=== PATIENT | male | born 1985 | race African-American/Black ===

== ENCOUNTER 2016-04-01 17:12 | Emergency (ER) | payer OTHER ==
[~2016-04-01] VITALS: Ht 180.3 cm; Wt 90.7 kg
[~2016-04-01 17:12] MED LIST: IBUPROFEN600 MG ORAL; NKM; POLYSPORIN O1 APPLI1 TOPIC; ROBAXIN-750750 MG PO; TRAMADOL HCL50 MG ORAL
[2016-04-01 18:37] VITALS: BP 122/70
--- NOTE | 2016-04-04 06:47 | Emergency Room Report ---
History of Present Illness General Chief Complaint: Dyspnea/Respdistress Source: Patient, EMS Present Illness HPI 31 YO M BIBEMS for "sob." Per EMS, + history of asthma. + smoker. VSS in field. Not hypoxic, no wheezing. No nebs given. Patient endorsing smoking "a lot" of marijuana. Patient not providing additional HPI - is laughing hysterically in triage. No acute distress. Denies ETOH, other drugs. Patient repeatedly asking staff for "snacks." Allergies: Coded Allergies: No Known Allergies (Unverified , 01/18/14) Patient History Past Medical History: asthma Past Surgical History: none Pertinent Family History: none Social History: Reports: drug use, smoking Immunizations: UTD Reviewed Nursing Documentation: PMH: Agreed, PSxH: Agreed Nursing Documentation-PMH Hx Asthma: Yes Hx COPD: Yes - Bronchitis Review of Systems All Other Systems: negative except mentioned in HPI Physical Exam Vital Signs Date Time Temp Pulse Resp B/P Pulse Ox O2 Delivery O2 Flow Rate FiO2 04/01/16 17:06 98.2 80 16 122/70 98 Room Air Sp02 EP Interpretation: reviewed, normal General Appearance: normal inspection, well appearing, no apparent distress, alert Head: atraumatic Eyes: bilateral eye EOMI, bilateral eye PERRL ENT: normal ENT inspection, hearing grossly normal, normal voice Neck: normal inspection, full range of motion, supple, no bony tend Respiratory: normal inspection, lungs clear, normal breath sounds, no rhonchi, no respiratory distress, no retraction, no accessory muscle use, no wheezing Cardiovascular #1: regular rate, rhythm, no edema Gastrointestinal: normal inspection, normal bowel sounds, non tender, soft, no guarding, no hernia Genitourinary: no CVA tenderness Musculoskeletal: normal inspection, back normal, normal range of motion, Jagdeep' s Sign negative Neurologic: normal inspection, alert, oriented x3, responsive, reading recovery teacher III-XII nml as tested, motor strength/tone normal, speech normal Psychiatric: normal inspection, judgement/insight normal, mood/affect normal Skin: normal inspection Lymphatic: normal inspection Medical Decision Making Diagnostic Impression: Primary Impression: Marijuana abuse ER Course 31 YO M with MJ abuse. VSS. Afebrile. Not in asthma exacerbation. Patieny sleeping comfortable in chair. Observed until alert and oriented DC home Last Vital Signs Date Time Temp Pulse Resp B/P Pulse Ox O2 Delivery O2 Flow Rate FiO2 04/01/16 18:37 80 16 122/70 98 Room Air 04/01/16 17:06 98.2 Status: improved Disposition: HOME, SELF-CARE Condition: Improved Referrals: SYLVIA TEJADA,REFERRING (PCP) Patient Instructions: Cannabis Use Disorder TIFFANIE STORM M.D. Apr 04, 2016 06:47
== END 2016-04-01 18:40 | disposition home or self-care (01) ==
LOC: EDBD 17:12 → EMR 17:42
DX: F12.10 Cannabis abuse, uncomplicated (principal); Z87.09 Personal history of other diseases of the respiratory system
CPT/HCPCS: 99283

== ENCOUNTER 2016-05-20 01:17 | Emergency (ER) | payer OTHER ==
[~2016-05-20] VITALS: Ht 167.6 cm; Wt 72.6 kg
--- NOTE | 2016-05-20 01:42 | Emergency Room Report ---
History of Present Illness General Chief Complaint: Upper Respiratory Illness Source: Patient, EMS Present Illness HPI A 31-year-old male with no significant past medical history. He said he has history of bronchitis/asthma but not on treatment. He presents chief complaint of soreness of breath. He's been here multiple time for the same thing. Denies any fever chills denies any nausea vomiting. Call 911 in front of his house. Allergies: Coded Allergies: No Known Allergies (Unverified , 01/18/14) Patient History Past Medical History: see triage record, old chart reviewed Past Surgical History: none Pertinent Family History: none Social History: Reports: smoking Immunizations: other Reviewed Nursing Documentation: PMH: Agreed, PSxH: Agreed Nursing Documentation-PMH Hx Asthma: Yes Hx COPD: Yes - Bronchitis Review of Systems Eye: Denies: blurred vision, eye pain ENT: Denies: ear pain, nose congestion, throat swelling Respiratory: Reports: shortness of breath, Denies: cough Cardiovascular: Denies: chest pain, palpitations Gastrointestinal: Denies: abdominal pain, diarrhea, nausea, vomiting Musculoskeletal: Denies: back pain, joint pain Skin: Denies: rash Neurological: Denies: headache, numbness Endocrine: Denies: increased thirst, increased urine Hematologic/Lymphatic: Denies: easy bruising All Other Systems: negative except mentioned in HPI Physical Exam Vital Signs Date Time Temp Pulse Resp B/P Pulse Ox O2 Delivery O2 Flow Rate FiO2 05/20/16 01:17 98.1 86 18 136/78 100 Room Air vitals normal Sp02 EP Interpretation: reviewed, normal General Appearance: well appearing, no apparent distress, alert Head: normocephalic, atraumatic Eyes: bilateral eye EOMI, bilateral eye PERRL ENT: hearing grossly normal, normal pharynx Neck: full range of motion, supple, no meningismus Respiratory: chest non-tender, lungs clear, normal breath sounds Cardiovascular #1: regular rate, rhythm, no murmur Gastrointestinal: normal bowel sounds, non tender, no mass, no organomegaly, no bruit, non-distended Musculoskeletal: back normal, gait/station normal, normal range of motion Psychiatric: mood/affect normal Skin: warm/dry Medical Decision Making Diagnostic Impression: Primary Impression: Dyspnea Qualified Codes: R06.00 - Dyspnea, unspecified ER Course Patient present with dyspnea. This is a chronic issue. His been to multiple time. Lungs are clear. I see no evidence of ACS, PE, dissection. Last Vital Signs Date Time Temp Pulse Resp B/P Pulse Ox O2 Delivery O2 Flow Rate FiO2 05/20/16 01:24 86 18 Room Air 05/20/16 01:17 98.1 136/78 100 Status: improved Disposition: HOME, SELF-CARE Condition: Stable Additional Instructions: followup your Dr. in 7 days. Return if worse. Abstain from smoking. MIGUEL A BENNETT M.D. May 20, 2016 01:42
[2016-05-20 01:45] VITALS: BP 136/78
== END 2016-05-20 01:48 | disposition home or self-care (01) ==
LOC: EDBD 01:17 → EMR 01:30
DX: R06.00 Dyspnea, unspecified (principal); F17.200 Nicotine dependence, unspecified, uncomplicated; J45.909 Unspecified asthma, uncomplicated; J44.9 Chronic obstructive pulmonary disease, unspecified
CPT/HCPCS: 99283

== ENCOUNTER 2017-09-09 04:22 | Emergency (ER) | payer OTHER ==
[~2017-09-09] VITALS: Ht 167.6 cm; Wt 81.6 kg
[2017-09-09] VITALS (17 sets, daily range): BP systolic 121–134; BP diastolic 71–89
[2017-09-09] MEDS ORDERED: PROAIR HFA8.5 GM INH (04:44)
[2017-09-09] MEDS ORDERED: Albuterol ud Inhalation HHN ONE (05:00)
[2017-09-09] MEDS ORDERED: LORazepam 1mg tab ORAL ONE ×2 (05:00→11:30)
--- NOTE | 2017-09-09 05:15 | Emergency Room Report ---
History of Present Illness General Chief Complaint: General Complaint Source: Patient, EMS Present Illness HPI Patient brought in by paramedics and police department Was placed on a 5150 by police department for suicidal ideation Patient had denies any suicidal thought He mainly complained of being short of breath Also admitted to smoking marijuana earlier It was reported that the patient had left [facility] And was taken by police for verbalizing suicidal thoughts Denies any nausea or vomiting denies any back or flank pain does not have any specific plan Allergies: Coded Allergies: No Known Allergies (Unverified , 01/18/14) Patient History Past Medical History: see triage record Pertinent Family History: none Reviewed Nursing Documentation: PMH: Agreed; PSxH: Agreed Nursing Documentation-PMH Hx Asthma: Yes Hx COPD: Yes - Bronchitis Review of Systems All Other Systems: negative except mentioned in HPI Physical Exam Vital Signs Date Time Temp Pulse Resp B/P (MAP) Pulse Ox O2 Delivery O2 Flow Rate FiO2 09/09/17 04:38 98.2 97 20 131/85 98 Room Air 98.2 Sp02 EP Interpretation: reviewed, normal General Appearance: well appearing, mild distress - Initially agitated and cursing at staff Head: normocephalic, atraumatic Eyes: bilateral eye PERRL, bilateral eye EOMI ENT: normal pharynx, no angioedema Neck: supple Respiratory: lungs clear Cardiovascular #1: regular rate, rhythm, no edema Gastrointestinal: non tender, soft Musculoskeletal: normal inspection Neurologic: alert, oriented x3, responsive Psychiatric: other - Here denies any suicidal thought, please have put the patient on 5150 for suicidal thought, patient agitated and aggressive Skin: normal color, no rash Lymphatic: no adenopathy Medical Decision Making ER Course Patient is having further blood work obtained to medically clear the patient Was given breathing treatment symptomatically for his complaint Does feel better And pending final clearance by psychiatric consultation Last Vital Signs Date Time Temp Pulse Resp B/P (MAP) Pulse Ox O2 Delivery O2 Flow Rate FiO2 09/09/17 04:38 98.2 97 20 131/85 98 Room Air 98.2 Condition: Improved Signed Out To: Oncoming physician Lalita Hodges DO Sep 09, 2017 05:15
[2017-09-09 06:01] LABS: BASOPHILS % (AUTO) 0.5 % (0.0-2.0); EOSINOPHILS % (AUTO) 0.1 % (0.0-3.0); HEMOGLOBIN 16.2 G/DL (14.2-18.0); LYMPHOCYTES % (AUTO) 18.5 % (20.0-45.0); MEAN CORPUSCULAR VOLUME 92 FL (80-99); NEUTROPHILS % (AUTO) 73.9 % (45.0-75.0); PLATELET COUNT 177 K/UL (150-450); RED BLOOD COUNT 5.23 M/UL (4.70-6.10); WHITE BLOOD COUNT 16.3 K/UL (4.8-10.8)
--- NOTE | 2017-09-09 06:12 | Emergency Room Report ---
History of Present Illness General Chief Complaint: General Complaint Source: Patient, EMS Present Illness Allergies: Coded Allergies: No Known Allergies (Unverified , 01/18/14) Nursing Documentation-PMH Hx Asthma: Yes Hx COPD: Yes - Bronchitis Physical Exam Vital Signs Date Time Temp Pulse Resp B/P (MAP) Pulse Ox O2 Delivery O2 Flow Rate FiO2 09/09/17 04:38 98.2 97 20 131/85 98 Room Air 98.2 09/09/17 05:16 21 Medical Decision Making Restraint Reassesment I, Lalita Hodges DO, have personally evaluated this patient. Laboratory tests have been reviewed and addressed accordingly. The patient is deemed to present a danger to themselves and/or others. This is based on the exam, history ( provided by patient, EMS/[employer] and/or family) and observed or reported behavior. Attempts for non-invasive measures have been considered and/or attempted, however, have been futile. It is in the best interest of the nursing staff, the patient, and others involved in this patient's care that behavioral restraints be applied. Patient evaluation reveals the following: Last Vital Signs Date Time Temp Pulse Resp B/P (MAP) Pulse Ox O2 Delivery O2 Flow Rate FiO2 09/09/17 05:43 98.3 85 16 99 Room Air 09/09/17 05:24 21 09/09/17 04:38 131/85 Condition: Improved Referrals: [facility],REFERRING (PCP) Lalita Hodges DO Sep 09, 2017 06:12
[2017-09-09 06:15] LABS: ANION GAP 14 mmol/L (5-15); BLOOD UREA NITROGEN 5 mg/dL (7-18); CALCIUM 8.6 MG/DL (8.5-10.1); CARBON DIOXIDE 23 MMOL/L (21-32); CHLORIDE 102 MMOL/L (98-107); POTASSIUM 2.9 MMOL/L (3.5-5.1); SODIUM 139 MMOL/L (136-145)
[2017-09-09 06:21] LABS: ALANINE AMINOTRANSFERASE 34 U/L (12-78); ALBUMIN 3.9 G/DL (3.4-5.0); ALBUMIN/GLOBULIN RATIO 1.1 (1.0-2.7); ALKALINE PHOSPHATASE 77 U/L (46-116); ASPARTATE AMINO TRANSFERASE 25 U/L (15-37); BILIRUBIN,TOTAL 0.4 MG/DL (0.2-1.0)
[2017-09-09] MEDS ORDERED: ZYPREXA2.5 MG ORAL (09:42)
[2017-09-09] MEDS ORDERED: ZOLOFT100 MG ORAL (09:43)
--- NOTE | 2017-09-09 11:47 | Diagnostic Imaging Report ---
Indication: Chest pain Comparison: 04/24/2015 A single view chest radiograph was obtained. Findings: Cardiomediastinal appearance is within normal limits for age. Pulmonary vascularity is appropriate. The diaphragmatic contour is smooth and costophrenic angles are sharp. No pleural effusions are identified. The bones are unremarkable. Impression: No acute findings
--- NOTE | 2017-09-09 13:23 | Emergency Room Report ---
Physical Exam Vital Signs Date Time Temp Pulse Resp B/P (MAP) Pulse Ox O2 Delivery O2 Flow Rate FiO2 09/09/17 04:38 98.2 97 20 131/85 98 Room Air 98.2 09/09/17 05:16 21 Medical Decision Making ER Course Pt. cooperative here, a bit anxious one mg. Ativan po given during my time in ED. He requested breakfast and lunch. Psychiatrist evaluated patient and released 5150. I agree ok for d/c. Can navigate environment. Last Vital Signs Date Time Temp Pulse Resp B/P (MAP) Pulse Ox O2 Delivery O2 Flow Rate FiO2 09/09/17 09:41 97.4 94 16 134/72 99 Room Air 97.4 09/09/17 06:00 21 Disposition: HOME, SELF-CARE Condition: Improved Referrals: [facility],REFERR[facility] (PCP) Sammy Herndon M.D. Sep 09, 2017 13:22
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
== END 2017-09-09 14:36 | disposition home or self-care (01) ==
LOC: EDBD 04:22 → EDUNIT# 04:22 → EMR 04:58
DX: R45.851 Suicidal ideations (principal); J44.9 Chronic obstructive pulmonary disease, unspecified; F41.9 Anxiety disorder, unspecified; F32.9 Major depressive disorder, single episode, unspecified; F12.90 Cannabis use, unspecified, uncomplicated
CPT/HCPCS: 36415; 71045; 80053; 80307; 80329; 85025; 94640; 94664; 99283; J8499

== ENCOUNTER 2017-09-16 22:09 | Emergency (ER) | payer OTHER ==
[~2017-09-16] VITALS: Ht 180.3 cm; Wt 116.6 kg
[~2017-09-16 22:09] MED LIST changes: +PROAIR HFA8.5 GM INH; +ZOLOFT100 MG ORAL; +ZYPREXA2.5 MG ORAL
[2017-09-16 22:35] VITALS: BP 122/84
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
[2017-09-16 22:51] VITALS: BP 122/84
== END 2017-09-16 22:51 | disposition home or self-care (01) ==
LOC: EDBD 22:09 → EDUNIT# 22:09 → EMR 22:21
DX: R06.00 Dyspnea, unspecified (principal); F91.9 Conduct disorder, unspecified; J44.9 Chronic obstructive pulmonary disease, unspecified; F17.200 Nicotine dependence, unspecified, uncomplicated
CPT/HCPCS: 80307; 99282